=== PATIENT | female | born 2000 | race Two or more races ===

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

== ENCOUNTER 2020-01-01 23:13 | Emergency (ER) | payer OTHER ==
[~2020-01-01] VITALS: Ht 152.4 cm; Wt 83.5 kg
--- NOTE | 2020-01-01 23:26 | NUR ---
BIBS FOR C/O WORSENING BUE PAIN SINCE YESTERDAY. DENIED TRUAMA OR FALL NO SWELLING NOTED. VSS, WILL CONT TO MONITOR
--- NOTE | 2020-01-01 23:26 | NUR ---
AT THE BED SIDE
--- NOTE | 2020-01-01 23:45 | NUR ---
PT MEDICALLY STABLE FOR D/C, Patient discharged to home in stable condition. Written and verbal after care instructions given. Patient verbalizes understanding of instruction.
[2020-01-01 23:46] VITALS: BP 133/72
== END 2020-01-01 23:48 | disposition home or self-care (01) ==
LOC: ER 23:15
DX: F41.9 Anxiety disorder, unspecified (principal); R20.0 Anesthesia of skin

== ENCOUNTER 2020-04-29 10:39 | Emergency (ER) | payer OTHER ==
[~2020-04-29] VITALS: Ht 152.4 cm; Wt 83.9 kg
[2020-04-29 10:48] VITALS: BP 131/82
[2020-04-29] MEDS ORDERED: KETOROLAC TROMETHAMINE INJ 30 MG/ML VIAL IV ONE (12:00)
--- NOTE | 2020-04-29 12:08 | NUR ---
COVID AND FLU SWAB DONE AND SENT TO LAB
[2020-04-29] MEDS ORDERED: KETOROLAC TROMETHAMINE 15 MG/ML VIAL ONE (12:19)
--- NOTE | 2020-04-29 13:17 | NUR ---
Patient discharged to home in stable condition. Written and verbal after care instructions given. Patient verbalizes understanding of instruction. Pt ambulatory with a steady gait
== END 2020-04-29 13:20 | disposition home or self-care (01) ==
LOC: ER 10:47
DX: B34.9 Viral infection, unspecified (principal); R11.2 Nausea with vomiting, unspecified; R19.7 Diarrhea, unspecified; M79.10 Myalgia, unspecified site; Z20.828 Contact with and (suspected) exposure to other viral communicable diseases
CPT/HCPCS: 87804; 96372; 99283; C9803; J1885; U0003

== ENCOUNTER 2021-04-14 00:58 | Emergency (ER) | payer MEDICAID, OTHER ==
[~2021-04-14] VITALS: Ht 152.4 cm; Wt 72.6 kg
[2021-04-14 01:48] VITALS: BP 122/72
[2021-04-14] MEDS ORDERED: LIDOCAINE 2% 20 ML MDV IJ ONE (02:00)
[2021-04-14] MEDS ORDERED: SODIUM BICARBONATE 5 ML VIAL MC ONE (02:00)
[2021-04-14] MEDS ORDERED: SODIUM BICARBONATE 5 ML VIAL ONE ×2 (02:02→02:10)
[2021-04-14] MEDS ORDERED: LIDOCAINE 2% 20 ML MDV ONE ×2 (02:02→02:11)
== END 2021-04-14 02:30 | disposition home or self-care (01) ==
LOC: ER 00:58
DX: T16.1XXA Foreign body in right ear, initial encounter (principal); W45.8XXA Other foreign body or object entering through skin, initial encounter; Y93.89 Activity, other specified; Y92.89 Other specified places as the place of occurrence of the external cause; Y99.8 Other external cause status
CPT/HCPCS: 99284; J3490 ×4

== ENCOUNTER 2022-04-05 21:47 | Emergency (ER) | payer OTHER ==
[~2022-04-05] VITALS: Ht 162.6 cm; Wt 77.1 kg
[2022-04-05] MEDS ORDERED: ONDANSETRON HCL/PF 4 MG/2 ML VIAL IVP ONE (22:00)
[2022-04-05] MEDS ORDERED: IV NS 0.9% 1,000 ML BAG IV ONE (22:00)
--- NOTE | 2022-04-05 22:00 | NUR ---
TO ER BED 12. BIBS C/O RUQ PAIN SINCE THURSDAY. +N/V. PT IS ALERT AND ORIENTED. RR EVEN AND NON LABORED. CONNECTED TO MONITOR. AWAITING MD DALEY
[2022-04-05] MEDS ORDERED: ONDANSETRON HCL/PF 4 MG/2 ML VIAL ONE (22:17)
[2022-04-05 22:40] LABS: BASOPHILS % (AUTO) 0.3 % (0.0-2.0); EOSINOPHILS % (AUTO) 1.5 % (0.0-6.0); HEMATOCRIT 40 % (33-45); HEMOGLOBIN 13.5 g/dL (11.5-14.8); LYMPHOCYTES % (AUTO) 31.2 % (20.0-44.0); MEAN CORPUSCULAR HGB CONC 34 g/dl (31.0-36.0); MEAN CORPUSCULAR VOLUME 84 fL (82-100); MONOCYTES # (AUTO) 0.5 K/uL (0.1-1.30); MONOCYTES % (AUTO) 7.8 % (2.0-12.0); NEUTROPHILS # (AUTO) 3.7 K/uL (1.8-8.9); NEUTROPHILS % (AUTO) 59.2 % (43.0-81.0); PLATELET COUNT (AUTO) 209 K/uL (150-450); RED BLOOD CELL COUNT(AUTO) 4.73 MIL/uL (4.0-5.2); WHITE BLOOD COUNT (AUTO) 6.3 K/uL (4.3-11.0)
--- NOTE | 2022-04-05 22:41 | NUR ---
URINE COLLECTED AND SENT TO LAB
--- NOTE | 2022-04-05 22:41 | NUR ---
IV LINE ESTABLISHED, [id number]
--- NOTE | 2022-04-05 22:42 | NUR ---
BLOOD COLLECTED AND SENT TO LAB
[2022-04-05 22:50] LABS: BILIRUBIN,URINE NEGATIVE (NEGATIVE); COLOR,URINE YELLOW (YELLOW); LEUKOCYTE ESTERASE ,URINE NEGATIVE (NEGATIVE); NITRITE, URINE NEGATIVE (NEGATIVE); PROTEIN,URINE NEGATIVE (NEGATIVE); UGLUCOSE NEGATIVE (NEGATIVE); UROBILINOGEN,URINE 0.2 EU/dL (0.2)
[2022-04-05 22:58] LABS: BACTERIA,URINE Rare /HPF (None Seen); RBC,URINE 0-2 /HPF (0-2); SQUAMOUS EPITHELIAL CELL,UR Few /HPF (None Seen); WBC,URINE 0-2 /HPF (0-3)
[2022-04-05 22:58] LABS: ALBUMIN 3.6 g/dL (3.4-5.0); BILIRUBIN,DIRECT 0.1 mg/dL (0.0-0.2); BILIRUBIN,TOTAL 0.3 mg/dL (0.2-1.0); CREATININE 0.7 mg/dL (0.6-1.3); POTASSIUM 3.7 mmol/L (3.5-5.1); TOTAL PROTEIN, SERUM 7.3 g/dL (6.4-8.2)
[2022-04-05] MEDS ORDERED: DICY10SO PO (23:19)
[2022-04-05] MEDS ORDERED: ONDA4TAB11 PO (23:19)
[2022-04-05 23:27] VITALS: BP 130/79
--- NOTE | 2022-04-05 23:27 | NUR ---
Patient discharged to home in stable condition. Written and verbal after care instructions given. Patient verbalizes understanding of instruction.
== END 2022-04-05 23:28 | disposition home or self-care (01) ==
LOC: ER 21:50
DX: R10.11 Right upper quadrant pain (principal); R11.2 Nausea with vomiting, unspecified
CPT/HCPCS: 99284; 96374; 76705; 96361; 85025; 80048; 83690; 80076; 84703; 81001; 36415; J2405; J7030